=== PATIENT | female | born 1995 | race African-American/Black ===

== ENCOUNTER 2017-05-01 18:49 | Emergency (ER) | payer SELFPAY ==
[~2017-05-01] VITALS: Ht 154.9 cm; Wt 44.5 kg
[~2017-05-01 18:49] MED LIST: FLUO40CA PO; FLUO40CA12 PO; HYDR-3812 PO; IBUP-1773 PO
--- NOTE | 2017-05-01 20:26 | ED GU-Female ---
General Chief Complaint: -Female Stated Complaint: FALL, HIT R HIP ON GLASS TABLE Nursing Triage Note: Pt reports riding a hoverboard yesterday and falling into a glass table. states hit edge of the table directly in groin/hip area. yesterday she had slight bleeding then today started bleeding heavily and having severe tenderness to the right groin area. states it hurts to laugh or sneeze as well. pt reports lmp 04/15/17, and never has had abnormal bleeding. Nursing Sepsis Screen: No Definite Risk Source: patient Exam Limitations: no limitations History of Present Illness Time seen by provider: 20:26 Allergies and Home Medications Allergies Coded Allergies: No Known Drug Allergies (Unverified , 02/24/16) Home Medications No Active Prescriptions or Reported Meds Past Hjesjqq-Fvfguv-Qmkhmo Hx Patient Social History Alcohol Use: Occasionally Uses Alcohol Beverage of Choice: Wine Recreational Drug Use: No Smoking Status: Current Everyday Smoker Type Used: Cigarettes Recent Foreign Travel: No Contact w/Someone Who Travel: No Recent Infectious Disease Expo: No Recent Hopitalizations: No Immunizations Up To Date Tetanus Booster (TDap): Less than 5yrs PED Vaccines UTD: Yes Seasonal Allergies Seasonal Allergies: No Surgeries History of Surgeries: No (D&C 2015) Respiratory History of Respiratory Disorde: No Cardiovascular History of Cardiac Disorders: No Neurological History of Neurological Disord: No Reproductive System : No (uncertain) Last Menstrual Period: Apr 15, 2017 Hx Reproductive Disorders: No Gastrointestinal History of Gastrointestinal Di: No Musculoskeletal History of Musculoskeletal Dis: No Endocrine History of Endocrine Disorders: No HEENT History of HEENT Disorders: No Cancer History of Cancer: No Psychosocial History of Psychiatric Problem: Yes Behavioral Health Disorders: Anxiety Integumentary History of Skin or Integumenta: No Blood Transfusions History of Blood Disorders: No Family Medical History Significant Family History: No Pertinent Family Hx Physical Exam Vital Signs Vital Sign - Last 12Hours 05/01/17 19:41 Temp 98.8 Pulse 88 Resp 18 B/P (MAP) 99/56 Pulse Ox 99 O2 Delivery Room Air Capillary Refill : Less Than 3 Seconds Progress/Results/Core Measures Results/Orders My Orders Orders - LISBET WEISS Urine Bedside (05/01/17 20:13) Ketorolac Injection (Toradol Injection) (05/01/17 20:40) Orphenadrine Injection (Norflex Injectio (05/01/17 20:40) Pelvis (05/01/17 20:40) Hip, Right, 2 Views (05/01/17 20:40) Us Non Ob Transvaginal [id number] (05/01/17 20:40) Vital Signs/I&O Vital Sign - Last 12Hours 05/01/17 19:41 Temp 98.8 Pulse 88 Resp 18 B/P (MAP) 99/56 Pulse Ox 99 O2 Delivery Room Air Blood Pressure Mean: 70 Diagnostic Imaging Diagonstic Imaging: Ultrasound Plain Films/CT/US/NM/MRI: pelvis Comments FINDINGS: The uterus measures 5.8 x 3.3 x 2.8 cm. There is no myometrial mass. There is prominent thickening of the endometrium focally in the superior portion of the uterus which may represent blood clot or polypoid lesion. This measured about 1.5 cm in diameter. The right ovary measures 3.2 x 2.3 x 2.9 cm and contains a 1.5 cm cyst. The left ovary measures 2.3 x 1.5 x 3.0 cm and appears unremarkable. IMPRESSION: Uterus shows no myometrial lesion but there is thickening of the endometrium, superiorly, which is fairly focal and may represent blood clot or polyp. Consider followup as clinically warranted. There is a 1.5 cm cyst in the right ovary. There is color-flow to both ovaries. There is no significant free fluid. Dictated on workstation # [id number] Reviewed: Reviewed by Me (radiology report reviewed by me) Diagonstic Imaging: Xray Plain Films/CT/US/NM/MRI: pelvis Comments No fracture or acute bony abnormality seen. Joint spaces are unremarkable. IMPRESSION: Negative pelvis. Dictated by: Dictated on workstation # [id number] Reviewed: Reviewed by Me (radiology report reviewed by me) Diagonstic Imaging: Xray Plain Films/CT/US/NM/MRI: hip Comments No fracture or acute bony abnormality seen. Joint spaces are unremarkable. IMPRESSION: Negative right hip. Dictated by: Dictated on workstation # [id number] Reviewed: Reviewed by Me (radiology report reviewed by me) Departure Impression Impression: Primary Impression: Abnormal pelvic ultrasound Additional Impressions: Contusion of right groin Ovarian cyst Abnormal vaginal bleeding Disposition: 01 HOME, SELF-CARE Condition: Improved Departure-Patient Inst. Decision time for Depature: 21:53 Referrals: NO,LOCAL PHYSICIAN (PCP) Primary Care Physician CHRISTOPHE BARRIOS DO Patient Instructions: IRREGULAR VAGINAL BLEEDING, Ovarian Cyst (DC) Add. Discharge Instructions: All discharge instructions reviewed with patient and/or family. Voiced understanding. Medications as instructed. Tylenol Extra Strength over-the- counter as directed for pain. Ibuprofen 600 mg by mouth every 6-8 hours as needed for pain. Ice pack for 20 minute intervals as needed for pain. Light activity until released by your physician. Follow-up with Dr. Barrios as an outpatient in the next 1-2 days. Call her office for appointment time. Return to the emergency department for increased pain, fever, vaginal bleeding with greater than 2 pads per for greater than 2 hours, vaginal discharge, abdominal swelling, inability to urinate, blood in the stools, or any other concerns. Scripts Tramadol HCl (Tramadol HCl) 50 Mg Tablet 50 MG PO Q4H Y for pain, #10 TAB 0 Refills Prov: LISBET WEISS 05/01/17 Work/School Note: Work Release Form Date Seen in the Emergency Department: May 01, 2017 Return to Work: May 03, 2017 Other Restrictions Listed Below: light activity until released by patients physician. LISBET WEISS May 01, 2017 20:26
[2017-05-01] MEDS ORDERED: ORPHENADRINE 60 MG/2 ML (NORFLEX) AMP IM STA (20:40)
[2017-05-01] MEDS ORDERED: KETOROLAC 60 MG/2 ML VIAL IM STA (20:40)
--- NOTE | 2017-05-01 21:13 | Diagnostic Imaging Report ---
INDICATION: Fall with right hip pain AP pelvis obtained at 9:19 p.m. No fracture or acute bony abnormality seen. Joint spaces are unremarkable. IMPRESSION: Negative pelvis. Dictated by: Dictated on workstation # [id number]
--- NOTE | 2017-05-01 21:14 | Diagnostic Imaging Report ---
INDICATION: Fall with right hip pain AP and oblique views of the right hip are obtained. No fracture or acute bony abnormality seen. Joint spaces are unremarkable. IMPRESSION: Negative right hip. Dictated by: Dictated on workstation # [id number]
--- NOTE | 2017-05-01 21:26 | Diagnostic Imaging Report ---
INDICATION: Vaginal bleeding, history of trauma. EXAMINATION: Pelvic sonography was performed with transvaginal views. FINDINGS: The uterus measures 5.8 x 3.3 x 2.8 cm. There is no myometrial mass. There is prominent thickening of the endometrium focally in the superior portion of the uterus which may represent blood clot or polypoid lesion. This measured about 1.5 cm in diameter. The right ovary measures 3.2 x 2.3 x 2.9 cm and contains a 1.5 cm cyst. The left ovary measures 2.3 x 1.5 x 3.0 cm and appears unremarkable. IMPRESSION: Uterus shows no myometrial lesion but there is thickening of the endometrium, superiorly, which is fairly focal and may represent blood clot or polyp. Consider followup as clinically warranted. There is a 1.5 cm cyst in the right ovary. There is color-flow to both ovaries. There is no significant free fluid. Dictated by: Dictated on workstation # [id number]
[2017-05-01] MEDS ORDERED: RX-TRAMADOL 50 MG (ULTRAM) TAB PPK#4 PO STA (21:51)
[2017-05-01] MEDS ORDERED: TRAM50TA2 PO (21:54)
[2017-05-01 22:04] VITALS: BP 100/59
== END 2017-05-01 22:04 | disposition home or self-care (01) ==
LOC: EDUNIT# 18:49 → ER 18:51
DX: S30.1XXA Contusion of abdominal wall, initial encounter (principal); N93.9 Abnormal uterine and vaginal bleeding, unspecified; R93.8 Abnormal findings on diagnostic imaging of other specified body structures; N83.201 Unspecified ovarian cyst, right side; F41.9 Anxiety disorder, unspecified; F17.210 Nicotine dependence, cigarettes, uncomplicated; W25.XXXA Contact with sharp glass, initial encounter
CPT/HCPCS: 72170; 73502; 76830; 84703; 96372; 99284

== ENCOUNTER 2017-05-16 09:24 | Emergency (ER) | payer SELFPAY ==
[~2017-05-16] VITALS: Ht 154.9 cm; Wt 45.4 kg
[~2017-05-16 09:24] MED LIST changes: +TRAM50TA2 PO
--- OUTSIDE RECORDS SUMMARY | 2017-05-16 09:30 | XMS REPORT ---
Author MEGHAN Schumacher eClinical[employer] Address Unknown Phone Unavailable Care Team Providers Care Appliance Fixer Name Role Phone MEGHAN DALTON CP Unavailable Allergies No Known Allergies Problems Problem Type Condition Code Onset Dates Condition Status Assessment Encounter for Depo-Provera contraception Z30.42 Active Problem General counseling for initiation of other contraceptive measures V25.02 Active Problem General counseling for prescription of oral contraceptives V25.01 Active Problem Encounter for counseling regarding contraception Z30.9 Active Problem Encounter for initial prescription of injectable contraceptive Z30.013 Active Problem Routine gynecological examination Z01.419 Active Problem Encounter for removal of intrauterine contraceptive device V25.12 Active Problem Encounter for insertion of intrauterine contraceptive device V25.11 Active Problem Surveillance of other previously prescribed contraceptive method V25.49 Active Problem Unspecified contraceptive management V25.9 Active Medications No Known Medications Procedures Procedure Coding System Code Date DEPO PROVERA (150 MG/ML) CPT-4 J1050 Jun 14, 2016 THER/PROPH/DIAG INJ, SC/IM CPT-4 61021 Jun 14, 2016 URINE TEST CPT-4 01112 Jun 14, 2016 Results Name Result Date Reference Range Unit Abnormality Flag TEST, URINE (IN HOUSE) ----RESULTS Negative [id number] ----Lot # [id number] ----Control + [id number] ----Exp date [id number] Summary Purpose eClinicalWorks Submission
--- OUTSIDE RECORDS SUMMARY | 2017-05-16 09:30 | XMS REPORT | Continuity of Care Document ---
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 12/15/2010 JASMEET NETWORK CONTROLLER, LISE A 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 12/15/2010 JASMEET NETWORK CONTROLLER, LISE A 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 12/15/2010 MEGHAN DALTON DO 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 12/15/2010 JASMEET NETWORK CONTROLLER, LISE A 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 08/04/2011 V25.09 CONTRACEPTIVE COUNSELING - GENERAL 08/04/2011 V65.45 STD COUNSELING 08/04/2011 V74.5 STD SCREEN 08/04/2011 V25.09 CONTRACEPTIVE COUNSELING - GENERAL 08/04/2011 V65.45 STD COUNSELING 08/04/2011 V74.5 STD SCREEN 08/04/2011 JASMEET NETWORK CONTROLLER, LISE A V25.09 CONTRACEPTIVE COUNSELING - GENERAL 08/04/2011 JASMEET NETWORK CONTROLLER, LISE A V65.45 STD COUNSELING 08/04/2011 JASMEET NETWORK CONTROLLER, LISE A V74.5 STD SCREEN 08/04/2011 JASMEET NETWORK CONTROLLER, LISE A V25.09 CONTRACEPTIVE COUNSELING - GENERAL 08/04/2011 JASMEET NETWORK CONTROLLER, LISE A V65.45 STD COUNSELING 08/04/2011 JASMEET NETWORK CONTROLLER, LISE A V74.5 STD SCREEN 08/04/2011 MEGHAN DALTON DO V25.09 CONTRACEPTIVE COUNSELING - GENERAL 08/04/2011 MEGHAN DALTON DO V65.45 STD COUNSELING 08/04/2011 MEGHAN DALTON DO V74.5 STD SCREEN 08/04/2011 LISE ALAMO APRN A V25.09 CONTRACEPTIVE COUNSELING - GENERAL 08/04/2011 JASMEET JAIME, LISE A V65.45 STD COUNSELING 08/04/2011 ANGELES ALAMO APRNIDI A V74.5 STD SCREEN 10/27/2011 V25.49 CONTRACEPTION SURVEILLANCE (REPEAT RX) 10/27/2011 V25.49 CONTRACEPTION SURVEILLANCE (REPEAT RX) 10/27/2011 JASMEET JAIME, LISE A V25.49 CONTRACEPTION SURVEILLANCE (REPEAT RX) 10/27/2011 JASMEET JAIME, LISE A V25.49 CONTRACEPTION SURVEILLANCE (REPEAT RX) 10/27/2011 MEGHAN DALTON DO V25.49 CONTRACEPTION SURVEILLANCE (REPEAT RX) 10/27/2011 JASMEET JAIME, LISE A V25.49 CONTRACEPTION SURVEILLANCE (REPEAT RX) 02/01/2013 V25.02 CONTRACEPTION - ANY METHOD 02/01/2013 ANGELES ALAMO APRNIDI A V25.02 CONTRACEPTION - ANY METHOD 02/01/2013 ANGELES ALAMO APRNIDI A V25.02 CONTRACEPTION - ANY METHOD 02/01/2013 MEGHAN DALTON DO V25.02 CONTRACEPTION - ANY METHOD 02/01/2013 ANGELES ALAMO APRNIDI A V25.02 CONTRACEPTION - ANY METHOD 05/29/2013 ANGELES ALAMO APRNIDI A V25.11 IUD INSERTION 05/29/2013 JASMEET JAIME LISE A V25.12 IUD REMOVAL 05/29/2013 JASMEET JAIME LISE A V25.9 CONTRACEPTION MANAGEMENT 05/29/2013 MEGHAN DALTON DO V25.11 IUD INSERTION 05/29/2013 MEGHAN DALTON DO V25.12 IUD REMOVAL 05/29/2013 MEGHAN DALTON DO V25.9 CONTRACEPTION MANAGEMENT 05/29/2013 JASMEET JAIME LISE A V25.11 IUD INSERTION 05/29/2013 JASMEET JAIME LISE A V25.12 IUD REMOVAL 05/29/2013 JASMEET JAIME LISE A V25.9 CONTRACEPTION MANAGEMENT 03/05/2014 JASMEET JAIME LISE A V25.01 CONTRACEPTION - ORAL CONTRACEPTION 03/10/2015 JUSTINA HER MD Ot 786.59 03/10/2015 JUSTINA HER MD Ot 793.2 03/10/2015 JUSTINA HER MD Ot 793.11 03/21/2015 JUSTINA HER MD Ot 783.21 04/04/2015 JUSTINA HER MD Ot 786.59 04/04/2015 JUSTINA HER MD Ot 793.2 04/04/2015 JUSTINA HER MD Ot 793.11 04/04/2015 JUSTINA HER MD Ot 783.21 04/16/2015 JUSTINA HER MD Ot 780.94 04/16/2015 JUSTINA HER MD Ot 783.21 02/24/2016 JUSTINA HER MD Ot 786.59 CHEST PAIN NEC 02/24/2016 JUSTINA HER MD Ot 793.2 NOSP (ABN) FINDINGS ON RADIOLOGICAL OT 02/24/2016 JUSTINA HER MD Ot 793.11 SOLITARY PULMONARY NODULE 02/24/2016 JUSTINA HER MD Ot 783.21 LOSS OF WEIGHT 02/24/2016 JUSTINA HER MD Ot 780.94 EARLY SATIETY 02/24/2016 JUSTINA HER MD Ot 783.21 LOSS OF WEIGHT 02/24/2016 BARRIOS DO, CHRISTOPHE C Ot O00.2 OVARIAN 02/25/2016 BARRIOS DO, CHRISTOPHE C Ot O00.2 OVARIAN 03/01/2016 BARRIOS DO, CHRISTOPHE C Ot O00.2 OVARIAN 03/05/2016 BARRIOS DO, CHRISTOPHE C Ot O00.2 OVARIAN 04/12/2016 JUSTINA HER MD Ot 786.59 CHEST PAIN NEC 04/12/2016 JUSTINA HER MD Ot 793.2 NOSP (ABN) FINDINGS ON RADIOLOGICAL OT 04/12/2016 JUSTINA HER MD Ot 793.11 SOLITARY PULMONARY NODULE 04/12/2016 JUSTINA HER MD Ot 783.21 LOSS OF WEIGHT 04/12/2016 JUSTINA HER MD Ot 780.94 EARLY SATIETY 04/12/2016 JUSTINA HER MD Ot 783.21 LOSS OF WEIGHT 04/14/2016 CHRISTOPHE BARRIOS DO Ot R22.42 LOCALIZED SWELLING, MASS AND LUMP, LEFT 03/09/2017 CHRISTOPHE BARRIOS DO Ot O00.2 OVARIAN 05/01/2017 JUSTINA HER MD Ot 786.59 CHEST PAIN NEC 05/01/2017 JUSTINA HER MD Ot 793.2 NOSP (ABN) FINDINGS ON RADIOLOGICAL OT 05/01/2017 JUSTINA HER MD Ot 793.11 SOLITARY PULMONARY NODULE 05/01/2017 JUSTINA HER MD Ot 783.21 LOSS OF WEIGHT 05/01/2017 JUSTINA HER MD Ot 780.94 EARLY SATIETY 05/01/2017 JUSTINA HER MD Ot 783.21 LOSS OF WEIGHT 05/01/2017 CHRISTOPHE BARRIOS DO Ot R22.42 LOCALIZED SWELLING, MASS AND LUMP, LEFT Procedures Code Description [place] [address] THERAPUTIC INJ SQ/IM 09/16/2012 J1055 DEPO-PROVERA INJ 150 MG 09/16/2012 40474 URINE TEST (IN-HOUSE) 09/16/2012 30467 URINE TEST (IN-HOUSE) 02/01/2013 J1050 DEPO PROVERA 43369 THERAPUTIC INJ SQ/IM 02/01/2013 58558 URINE TEST (IN-HOUSE) 05/22/2013 21424 GC/CHLAM URINE (STATE) 05/22/2013 52141 THERAPUTIC INJ SQ/IM 05/29/2013 J1050 DEPO PROVERA 03/2013 32071 URINE TEST (IN-HOUSE) 05/29/2013 34740 IUD INSERTION 03/2013 42298 IUD REMOVAL 05/29 J7302 LEVONORGESTREL IU CONTRACEPT 05/29/2013 49871 TEST, URINE (IN-HOUSE) 09/07/2013 53311 THERAPUTIC INJ SQ/IM 09/07/2013 J1050 DEPO PROVERA 09946 TEST, URINE (IN-HOUSE) 03/05/2014 Results Encounters ACCT No. Visit Date/Time Discharge Status Pt. Type Provider Facility Loc./Unit Complaint [id number] 03/05/2014 14:26:00 03/05/2014 23: 59:59 CLS Outpatient ANGELES ALAMO APRNNASIR Walker [id number] 09/07/2013 14:40:00 09/07/2013 23: 59:59 CLS Outpatient MEGHAN DALTON DO Alejandra [id number] 05/29/2013 14:38:00 05/29/2013 23: 59:59 CLS Outpatient ANGELES ALAMO APRNNASIR Walker [id number] 05/22/2013 16:01:00 05/22/2013 23: 59:59 CLS Outpatient ANGELES ALAMO APRNNASIR Walker [id number] 09/16/2012 10:28:00 09/16/2012 23: 59:59 CLS Outpatient [id number] 02/01/2013 17:08:00 Document Registration [id number] 05/01/2017 18:51:00 2016 22:04:00 DIS Emergency LISBET MIXON [facility] ER FALL, HIT R HIP ON GLASS TABLE [id number] 04/12/2016 14:52:00 2015 23:59:59 CLS Outpatient CHRISTOPHE BARRIOS DO [facility] RAD LOWER LEG MASS [id number] 02/24/2016 15:42:00 2015 22:25:00 DIS Outpatient CHRISTOPHE BARRIOS DO [facility] SDC ECTOPIC [id number] 04/04/2015 10:37:00 2014 23:59:59 CLS Outpatient JUSTINA HER MD [facility] LAB EARLY ACTIVITY WT LOSS [id number] 03/10/2015 07:00:00 2014 23:59:59 CLS Outpatient JUSTINA HER MD [facility] RAD WEIGHT LOSS [id number] 09/11/2013 14:23:00 2013 23:59:59 CLS Outpatient JUSTINA HER MD [facility] RAD 15 MM NODULE ON T5 LATERAL [id number] 08/31/2013 13:37:00 2013 23:59:59 CLS Outpatient TAINA CURRY, JUSTINA Patino [facility] CARD CHEST WALL PAIN
--- OUTSIDE RECORDS SUMMARY | 2017-05-16 09:30 | XMS REPORT ---
Author MEGHAN Schumacher e[employer] Address Unknown Phone Unavailable Care Team Providers Care Marketing Information Manager Name Role Phone MEGHAN DALTON CP Unavailable Allergies No Known Allergies Problems Problem Type Condition Code Onset Dates Condition Status Problem Unspecified contraceptive management V25.9 Active Problem Encounter for removal of intrauterine contraceptive device V25.12 Active Problem Surveillance of other previously prescribed contraceptive method V25.49 Active Problem General counseling for prescription of oral contraceptives V25.01 Active Assessment Encounter for PPD test Z11.1 Active Problem Encounter for insertion of intrauterine contraceptive device V25.11 Active Problem General counseling for initiation of other contraceptive measures V25.02 Active Medications No Known Medications Procedures Procedure Coding System Code Date TB INTRADERMAL TEST CPT-4 11961 Jun 28, 2015 Results Name Result Date Reference Range Unit Abnormality Flag TB INTRADERMAL Summary Purpose eClinicalWorks Submission
--- OUTSIDE RECORDS SUMMARY | 2017-05-16 09:30 | XMS REPORT ---
Author Author LISE ALAMO Organization e[employer] Address Unknown Phone Unavailable Care Team Providers Care Stoker Mechanic Name Role Phone LISE ALAMO CP Unavailable Allergies No Known Allergies Problems Problem Type Condition Code Onset Dates Condition Status Problem Unspecified contraceptive management V25.9 Active Problem Encounter for removal of intrauterine contraceptive device V25.12 Active Problem Surveillance of other previously prescribed contraceptive method V25.49 Active Problem General counseling for prescription of oral contraceptives V25.01 Active Assessment Encounter for Depo-Provera contraception Z30.42 Active Problem Encounter for insertion of intrauterine contraceptive device V25.11 Active Problem General counseling for initiation of other contraceptive measures V25.02 Active Medications No Known Medications Procedures Procedure Coding System Code Date THER/PROPH/DIAG INJ, SC/IM CPT-4 71258 Jun 28, 2015 DEPO PROVERA (150 MG/ML) CPT-4 J1050 Jun 28, 2015 Results No Known Results Summary Purpose eClinicalWorks Submission
--- NOTE | 2017-05-16 11:54 | Diagnostic Imaging Report ---
PA and lateral views of the chest Indication: Chest pain Findings: The lungs are clear. The heart size is normal. There is no effusion or pneumothorax The mediastinum and williams appear unremarkable. Impression: Unremarkable study. Dictated by: Dictated on workstation # [id number]
--- NOTE | 2017-05-16 11:56 | Diagnostic Imaging Report ---
EXAMINATION: 2 views of the right ribs. INDICATION: Chest pain FINDINGS: There is no right rib fracture seen. The right lung is clear. IMPRESSION: Unremarkable exam. Dictated by: Dictated on workstation # [id number]
[2017-05-16] MEDS ORDERED: PRED10TA22 PO (12:36)
[2017-05-16] MEDS ORDERED: CYCL10TA9 PO (12:36)
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
[2017-05-16 12:42] VITALS: BP 105/55
== END 2017-05-16 12:40 | disposition home or self-care (01) ==
LOC: EDUNIT# 09:24 → ER 09:27
DX: M62.830 Muscle spasm of back (principal); R07.89 Other chest pain; F41.9 Anxiety disorder, unspecified; F17.210 Nicotine dependence, cigarettes, uncomplicated; Z98.51 Tubal ligation status
CPT/HCPCS: 71020; 71100; 84703; 99283

== ENCOUNTER 2017-05-20 09:23 | Emergency (ER) | payer SELFPAY ==
[~2017-05-20] VITALS: Ht 162.6 cm; Wt 46.3 kg
[~2017-05-20 09:23] MED LIST changes: +CYCL10TA9 PO; +PRED10TA22 PO
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
--- NOTE | 2017-05-20 11:59 | Diagnostic Imaging Report ---
PROCEDURE: CT chest without contrast. TECHNIQUE: Multiple contiguous axial images were obtained through the chest without the use of intravenous contrast. INDICATION: Fall. FINDINGS: The lungs demonstrate no significant consolidation or contusion. No fibrotic changes, bronchiectasis, or other pulmonary abnormality. No effusion or hemorrhage. The heart size is normal. No pericardial effusion. The mediastinum demonstrates no hematoma. Mild soft tissue fullness anteriorly is compatible with thymic remnants, normal for the patient's age. The thoracic aorta is normal in caliber. No mediastinal lymphadenopathy. No axillary lymphadenopathy. The hilar vessels are not opacified on this unenhanced exam with no definite hilar mass seen. The osseous structures appear unremarkable. Sections in the upper abdomen appear unremarkable. IMPRESSION: Unremarkable exam. Dictated by: Dictated on workstation # [id number]
[2017-05-20] MEDS ORDERED: HYDR-756 PO (12:03)
[2017-05-20 12:11] VITALS: BP 90/51
== END 2017-05-20 12:09 | disposition home or self-care (01) ==
LOC: EDUNIT# 09:23 → ER 09:24
DX: R07.89 Other chest pain (principal); F41.9 Anxiety disorder, unspecified; F17.210 Nicotine dependence, cigarettes, uncomplicated; Z87.828 Personal history of other (healed) physical injury and trauma; Z87.42 Personal history of other diseases of the female genital tract
CPT/HCPCS: 71250; 99283

== ENCOUNTER 2017-10-30 21:12 | Emergency (ER) | payer SELFPAY ==
[~2017-10-30] VITALS: Ht 157.5 cm; Wt 45.4 kg
[~2017-10-30 21:12] MED LIST changes: +ACHD5005 PO; -HYDR-3812 PO; +HYDR-756 PO
[2017-10-30 22:30] LABS: BILIRUBIN,URINE NEGATIVE (NEGATIVE); CLARITY,URINE CLEAR; COLOR,URINE YELLOW; GLUCOSE, URINE (UA) NEGATIVE (NEGATIVE); KETONES,URINE 1+ (NEGATIVE); LEUKOCYTE ESTERASE ,URINE 3+ (NEGATIVE); NITRITE,URINE NEGATIVE (NEGATIVE); PH,URINE 6 (5-9); PROTEIN,URINE 1+ (NEGATIVE); UROBILINOGEN,URINE 4 MG/DL (NORMAL)
[2017-10-30] MEDS ORDERED: KETOROLAC 60 MG/2 ML VIAL IM STA (22:38)
[2017-10-30 22:42] LABS: BACTERIA,URINE TRACE /HPF; CALCIUM OXALATE CRYSTALS,UR RARE /LPF
[2017-10-30] MEDS ORDERED: RX-TRIMETH/SULFA. 160-800 MG (BACTRIM DS) TAB PPK#2 PO STA (22:59)
[2017-10-30] MEDS ORDERED: PHENAZOPYRIDINE 100 MG (PYRIDIUM) TABLET PO ONE (23:00)
[2017-10-30] MEDS ORDERED: SULF1TAB35 PO (23:05)
--- NOTE | 2017-10-30 23:05 | ED GU-Female ---
General Chief Complaint: Abdominal/GI Problems Stated Complaint: CRAMPING ON L SIDE WHERE SHE HAD SURGERY Nursing Triage Note: left lower abdominal cramping Nursing Sepsis Screen: No Definite Risk History of Present Illness Date Seen by Provider: Oct 30, 2017 Time Seen by Provider: 22:25 Initial Comments 22-year-old -[place] female presents for suprapubic abdominal pain. She reports urinary frequency and spotting. Her last menstrual period was early September. She had an ectopic approximately one year ago and required a D&C. Denies any history of STDs. Urine hCG negative. She denies any nausea or vomiting. She has taken Tylenol today for the pain. Timing/Duration: yesterday Severity/Quality: moderate Location: suprapubic Radiation: none Associated Symptoms: denies symptoms Allergies and Home Medications Allergies Coded Allergies: No Known Drug Allergies (Unverified , 02/24/16) Home Medications Sulfamethoxazole/Trimethoprim 1 Each Tablet, 1 EACH PO BID Prescribed by: GERARDO CARVER on 10/30/17 1759 Patient Home Medication List Home Medication List Reviewed: Yes Constitutional: no symptoms reported, see HPI Gastrointestinal: see HPI, abdominal pain (suprapubic), nausea Genitourinary: see HPI, dysuria All Other Systemes Reviewed Negative Unless Noted: Yes Past Iswnier-Nyemww-Nqknhp Hx Patient Social History Alcohol Use: Denies Use Number of Drinks Today: Alcohol Beverage of Choice: Wine Recreational Drug Use: Yes Drug of Choice: cannibus Smoking Status: Current Everyday Smoker Type Used: Cigarettes 2nd Hand Smoke Exposure: Yes Recent Foreign Travel: No Contact w/Someone Who Travel: No Recent Infectious Disease Expo: No Recent Hopitalizations: No Immunizations Up To Date Tetanus Booster (TDap): Less than 5yrs PED Vaccines UTD: Yes Seasonal Allergies Seasonal Allergies: No Surgeries History of Surgeries: Yes (D&C 2016, tubal ) Respiratory History of Respiratory Disorde: No Cardiovascular History of Cardiac Disorders: No Neurological History of Neurological Disord: No Reproductive System : No Last Menstrual Period: Sep 23, 2017 Hx : 1 Hx Para: 0 Hx Total # of Abortions (Spona: 1 Hx Reproductive Disorders: No Genitourinary History of Genitourinary Disor: No Gastrointestinal History of Gastrointestinal Di: No Musculoskeletal History of Musculoskeletal Dis: No Endocrine History of Endocrine Disorders: No HEENT History of HEENT Disorders: No Cancer History of Cancer: No Did You Recieve Any Treatments: No Psychosocial History of Psychiatric Problem: Yes Behavioral Health Disorders: Anxiety Integumentary History of Skin or Integumenta: No Blood Transfusions History of Blood Disorders: No Reviewed Nursing Assessment Reviewed/Agree w Nursing PMH: Yes Family Medical History Significant Family History: No Pertinent Family Hx Physical Exam Vital Signs Vital Signs - First Documented 10/30/17 22:10 Temp 97.3 Pulse 76 Resp 18 B/P (MAP) 123/88 (100) Pulse Ox 98 O2 Delivery Room Air Capillary Refill : Less Than 3 Seconds General Appearance: WD/WN, no apparent distress Neck: non-tender, full range of motion, supple, normal inspection Cardiovascular: normal peripheral pulses, regular rate, rhythm, no murmur Respiratory: chest non-tender, lungs clear, normal breath sounds Gastrointestinal: normal bowel sounds, soft, No distended, No guarding, No rebound, tenderness (suprapubic), No hernia Back: normal inspection, no CVA tenderness, no vertebral tenderness, No CVA tenderness (R), No CVA tenderness (L) Neurologic/Psychiatric: no motor/sensory deficits, alert, normal mood/affect, oriented x 3 Skin: normal color, warm/dry Progress/Results/Core Measures Suspected Sepsis Recent Fever Within 48 Hours: No Infection Criteria Present: None New/Unexplained Altered Menta: No Sepsis Screen: No Definite Risk Sepsis Diagnosis: SIRS Temperature:97.3 Pulse: 76 Respiratory Rate: 18 Blood Pressure 123 /88 Mean: 100 Results/Orders Lab Results Laboratory Tests Test 10/30/17 22:15 Range/Units Urine Color YELLOW Urine Clarity CLEAR Urine pH 6 5-9 Urine Specific Anton 1.020 1.016-1.022 Urine Protein 1+ H NEGATIVE Urine Glucose (UA) NEGATIVE NEGATIVE Urine Ketones 1+ H NEGATIVE Urine Nitrite NEGATIVE NEGATIVE Urine Bilirubin NEGATIVE NEGATIVE Urine Urobilinogen 4 H NORMAL MG/DL Urine Leukocyte Esterase 3+ H NEGATIVE Urine RBC (Auto) NEGATIVE NEGATIVE Urine RBC none /HPF Urine WBC 5-10 H /HPF Urine Squamous Epithelial Cells 2-5 /HPF Urine Crystals PRESENT H /LPF Urine Calcium Oxalate Crystals RARE H /LPF Urine Bacteria TRACE /HPF Urine Casts NONE /LPF Urine Mucus SMALL H /LPF Urine Culture Indicated YES My Orders Orders - GERARDO CARVER Ketorolac Injection (Toradol Injection) (10/30/17 22:38) Phenazopyridine Tablet (Pyridium Tablet) (10/30/17 23:00) Rx-Trimeth/Sulfameth Ds Tab (Rx-Bactrim/ (10/30/17 22:59) Medications Given in ED Current Medications Medications Dose Ordered Sig/Orly Route Start Time Stop Time Status Last Admin Dose Admin Phenazopyridine HCl 100 mg ONCE ONCE PO 10/30/17 23:00 10/30/17 23:01 DC 10/30/17 23:08 100 MG Vital Signs/I&O Vital Sign - Last 12Hours 10/30/17 22:10 Temp 97.3 Pulse 76 Resp 18 B/P (MAP) 123/88 (100) Pulse Ox 98 O2 Delivery Room Air Capillary Refill : Less Than 3 Seconds Blood Pressure Mean: 100 Point of Care Testing Urine -Bedside: Negative Departure Impression Impression: Primary Impression: Urinary tract infection Qualified Codes: N30.00 - Acute cystitis without hematuria Disposition: HOME, SELF-CARE Condition: Stable Departure-Patient Inst. Decision time for Depature: 23:00 Referrals: JUSTINA HER MD (PCP/Family) Primary Care Physician Patient Instructions: Urinary Tract Infection, Adult (DC) Add. Discharge Instructions: Increase water intake. Tylenol 650 mg alternating with ibuprofen 600 mg every 4 hours for pain or fever Empty bladder every 2 hours while awake. Drink 1 glass of cranberry juice or eat 1 cup of blueberries twice daily. Take antibiotic as prescribed. Follow-up with your primary care provider if symptoms are not improving or worsen. Return to emergency department for new problems. All discharge instructions reviewed with patient and/or family. Voiced understanding. Scripts Sulfamethoxazole/Trimethoprim (Bactrim Ds Tablet) 1 Each Tablet 1 EACH PO BID, #10 TAB 0 Refills Prov: GERARDO CARVER 10/30/17 GERARDO CARVER Oct 30, 2017 23:05
[2017-10-30 23:08] VITALS: BP 123/88
--- OUTSIDE RECORDS SUMMARY | 2017-10-31 10:44 | XMS REPORT | Continuity of Care Document ---
Author Author [employer] Organization [facility] Address Unknown Phone Unavailable Care Team Providers Care Office Support Specialist Name Role Phone [employer] Unavailable Unavailable Problems Medications Allergies, Adverse Reactions, Alerts Immunizations Results Vital Signs Encounters Procedures Plan of Care Social History Assessment and Plan Family History Advance Directives Functional Status
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
== END 2017-10-30 23:09 | disposition home or self-care (01) ==
LOC: EDUNIT# 21:12 → ER 21:15
DX: N39.0 Urinary tract infection, site not specified (principal); F41.9 Anxiety disorder, unspecified; F12.90 Cannabis use, unspecified, uncomplicated; F17.210 Nicotine dependence, cigarettes, uncomplicated; Z87.59 Personal history of other complications of pregnancy, childbirth and the puerperium; Z32.02 Encounter for pregnancy test, result negative
CPT/HCPCS: 81000; 84703; 87088; 99284

== ENCOUNTER 2018-03-27 22:54 | Emergency (ER) | payer SELFPAY ==
[~2018-03-27] VITALS: Ht 157.5 cm; Wt 48.1 kg
[~2018-03-27 22:54] MED LIST changes: +SULF1TAB35 PO
[2018-03-27] MEDS ORDERED: LIDOCAINE 1% INJ 20 ML 20 ML VIAL INJ ONE (23:30)
[2018-03-27] MEDS ORDERED: LORA1TAB59 PO (23:30)
[2018-03-27] MEDS ORDERED: PRD10T PO (23:30)
[2018-03-27] MEDS ORDERED: cefTRIAXone 1 GM (ROCEPHIN) VIAL IM ONE (23:30)
[2018-03-27] MEDS ORDERED: FLUT9.9S NS (23:30)
[2018-03-27] MEDS ORDERED: CEFD300C3 PO (23:30)
[2018-03-27] MEDS ORDERED: KETOROLAC 60 MG/2 ML VIAL IM ONE (23:30)
[2018-03-27] MEDS ORDERED: NAPR-915 PO (23:30)
--- NOTE | 2018-03-27 23:30 | ED EENT ---
History of Present Illness General Chief Complaint: Ear Problems Stated Complaint: BUG IN R EAR Nursing Triage Note: PATIENT STATES THAT FOR THE LAST TWO DAYS SHE HAS BEEN HAVING EAR PAIN THAT SHE STATES "IS MOVING LIKE THERE IS A BUG IN THERE." THIS IS CAUSING PAIN AND MAKING IT DIFFICULT FOR HER TO SLEEP. Allergies and Home Medications Allergies Coded Allergies: No Known Drug Allergies (Unverified , 02/24/16) Home Medications Sulfamethoxazole/Trimethoprim 1 Each Tablet, 1 EACH PO BID Prescribed by: GERARDO CARVER on 10/30/17 7858 Past Iigttlx-Nvvzky-Lvnwfl Hx Patient Social History Alcohol Use: Denies Use Alcohol Beverage of Choice: Wine Recreational Drug Use: No Drug of Choice: cannibus Smoking Status: Current Everyday Smoker Type Used: Cigarettes 2nd Hand Smoke Exposure: Yes Recent Foreign Travel: No Contact w/Someone Who Travel: No Recent Infectious Disease Expo: No Recent Hopitalizations: No Physical Abuse: No Sexual Abuse: No Immunizations Up To Date Tetanus Booster (TDap): Less than 5yrs PED Vaccines UTD: Yes Seasonal Allergies Seasonal Allergies: No Past Medical History Surgeries: Yes (D&C 2016, tubal ) Respiratory: No Cardiac: No Neurological: No Reproductive Disorders: No Genitourinary: No Gastrointestinal: No Musculoskeletal: No Endocrine: No HEENT: No Cancer: No Did You Recieve Any Treatments: No Psychosocial: Yes Anxiety Nursing Suicide Risk Score: 0 Integumentary: No Blood Disorders: No Family Medical History No Pertinent Family Hx Physical Exam Vital Signs Vital Signs - First Documented 03/27/18 23:08 Temp 97.1 Pulse 66 Resp 20 B/P (MAP) 96/55 (69) Pulse Ox 100 Height, Weight, BMI Height: 5'2.00" Weight: 106lbs. 0oz. 48.478016rd; 18.29 BMI Method:Stated Progress/Results/Core Measures Results/Orders My Orders Orders - SAIMA TURCIOS DO Ketorolac Injection (Toradol Injection) (03/27/18 23:30) Rocephin 1000mg Im (03/27/18 23:30) Lidocaine 1% Inj 20 Ml (Xylocaine 1% Inj (03/27/18 23:30) Vital Signs/I&O 03/27/18 23:08 Temp 97.1 Pulse 66 Resp 20 B/P (MAP) 96/55 (69) Pulse Ox 100 Blood Pressure Mean: 69 Departure Impression Primary Impression: Right ear pain Additional Impression: Sinusitis Disposition: 01 HOME, SELF-CARE Condition: Stable Departure-Patient Inst. Referrals: [facility] Patient Instructions: Sinusitis, Adult (DC) Add. Discharge Instructions: TYLENOL 1 GRAM 4 TIMES A DAY NEEDED FOR PAIN FOLLOW UP WITH [facility] IN 3-4 DAYS IF NO BETTER All discharge instructions reviewed with patient and/or family. Voiced understanding. Scripts Prednisone (Prednisone) 10 Mg Tab 40 MG PO DAILY, #12 TAB Prov: SAIMA TURCIOS DO 03/27/18 Naproxen (Naproxen) 500 Mg Tablet 500 MG PO BID, #20 TAB Prov: SAIMA TURCIOS DO 03/27/18 Loratadine/Pseudoephedrine (Claritin-D 12 Hour Tablet) 1 Each Tab.er.12h 1 EACH PO BID, #20 TAB Prov: SAIMA TURCIOS DO 03/27/18 Fluticasone Propionate (Flonase Allergy Relief) 9.9 Ml Mozier.susp 2 SPRAYS NS BID, #1 SPRAY Prov: SAIMA TURCIOS DO 03/27/18 Cefdinir (Cefdinir) 300 Mg Capsule 300 MG PO BID for FOR INFECTION, #20 CAP Prov: SAIMA TURCIOS DO 03/27/18 SAIMA TURCIOS DO Mar 27, 2018 23:30
[2018-03-27 23:40] VITALS: BP 96/55
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
== END 2018-03-27 23:44 | disposition home or self-care (01) ==
LOC: EDUNIT# 22:54 → ER 22:55
DX: H92.01 Otalgia, right ear (principal); J32.9 Chronic sinusitis, unspecified; F41.9 Anxiety disorder, unspecified; F17.210 Nicotine dependence, cigarettes, uncomplicated; Z87.59 Personal history of other complications of pregnancy, childbirth and the puerperium
CPT/HCPCS: 96372; 99284

== ENCOUNTER → 2021-12-16 | Outpatient (CLI) | payer OTHER ==
[~2021-12-16] MED LIST changes: +CEFD300C3 PO; +CYCL10TA25 PO; -CYCL10TA9 PO; +FLUT9.9S NS; +HYDR-4227 PO; -HYDR-756 PO; +LORA1TAB59 PO; +NAPR-915 PO; +PRD10T PO; -SULF1TAB35 PO; +SULF1TAB38 PO; -TRAM50TA2 PO; +TRM50T PO
== END ==
LOC: LAB 12:01
PROVIDERS: ATTEND Family Medicine
DX: N89.8 Other specified noninflammatory disorders of vagina (principal)
CPT/HCPCS: 36415; 87491; 87591

== ENCOUNTER → 2022-01-01 | Outpatient (CLI) | payer OTHER ==
--- NOTE | 2022-01-01 15:20 | Diagnostic Imaging Report ---
PROCEDURE: US Non-ob pelvis comp/trans. TECHNIQUE: Multiple realtime grayscale images were obtained of the pelvis in various projections endovaginally. Transabdominal imaging was also performed. INDICATION: Painful menstrual periods, pelvic pain. COMPARISON: 05/01/2017 FINDINGS: The uterus measures 5.6 x 3.3 x 4.5 cm. No focal uterine mass. The endometrium measures 0.3 cm, which is not abnormally thickened. The right ovary measures 2.6 x 2.1 x 1.9 cm. A 2.0 cm thin-walled anechoic cyst without internal vascularity is seen within the right ovary. Vascular flow is present within the right ovary. The left ovary measures 3.5 x 2.0 x 2.3 cm. Multiple follicles are seen within the left ovary. Vascular flow is present within the left ovary. No significant free fluid. IMPRESSION: Dominant follicle within the right ovary. Otherwise, unremarkable examination. Dictated by: Dictated on workstation # [id number]
== END ==
LOC: RAD 10:00
PROVIDERS: ATTEND Family Medicine
DX: N83.01 Follicular cyst of right ovary (principal)
CPT/HCPCS: 76830; 76856

== ENCOUNTER → 2022-11-08 | Outpatient (CLI) | payer OTHER ==
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
== END ==
LOC: RAD 08:45
PROVIDERS: ATTEND Family Medicine
DX: S16.1XXA Strain of muscle, fascia and tendon at neck level, initial encounter (principal); X58.XXXA Exposure to other specified factors, initial encounter
CPT/HCPCS: 72141

== ENCOUNTER 2022-11-12 11:22 | Outpatient (RCR) | payer OTHER | END 2022-11-12 11:53 | disposition home or self-care (01) | PROVIDERS: ATTEND Family Medicine | DX: M54.2 Cervicalgia (principal) ==